=== PATIENT | male | born 1955 | race Caucasian/White ===

== ENCOUNTER 2016-09-17 11:51 | Emergency (ER) | payer BC, OTHER ==
--- NOTE | 2016-09-17 13:04 | ED ---
General Adult HPI - General Chief complaint: Shortness of Breath Stated complaint: SOB, PAIN IN RT LUNG Time Seen by Provider: 09/17/16 12:38 Source: patient, family, RN notes reviewed Mode of arrival: wheelchair Limitations: no limitations - History of Present Illness Initial comments: Chief complaint history of present illness a 60-year-old male who over the last week is been having discomfort to the right mid anterior ribs. Increases with deep breathing coughing and palpation. No direct injury but he has been doing heavy lifting in the garden. No sweats no fever. - Related Data Home Medications Medication Instructions Recorded Confirmed Acetaminophen-Codeine 300-30mg 1 tab PO Q8H PRN 09/17/16 09/17/16 [Tylenol #3] Ibuprofen [Motrin] 600 mg PO Q6HR PRN 09/17/16 09/17/16 Previous Rx's Medication Instructions Recorded Ibuprofen [Motrin] 600 mg PO Q6HR PRN #20 tab 09/17/16 Levofloxacin [Levaquin] 500 mg PO DAILY #7 tab 09/17/16 Allergies Allergy/AdvReac Type Severity Reaction Status Date / Time No Known Allergies Allergy Verified 09/17/16 12:44 Review of Systems ROS Statement: Those systems with pertinent positive or pertinent negative responses have been documented in the HPI. Review of systems no headache or visual acuity changes mild neck discomfort with flexion-extension shortness of breath associated with deep breathing causes pain with deep breathing. Splinting helps decrease the pain slightly. No nausea no vomiting. All systems reviewed No significant past medical problems. Surgeries none. Family history heart disease multilevel lung cancer. He has no ALLERGIES. He does smoke strongly encouraged to stop he drinks alcohol socially. ROS Other: All systems not noted in ROS Statement are negative. Past Medical History Past Medical History: No Reported History History of Any Multi-Drug Resistant Organisms: None Reported Past Surgical History: No Surgical Hx Reported Past Psychological History: No Psychological Hx Reported Smoking Status: Current every day smoker Past Alcohol Use History: Occasional Past Drug Use History: None Reported General Exam - General Exam Comments Initial Comments: General: The patient is awake and alert, weeklong pain with deep breathing coughing and palpation of the right anterolateral rib cage. Vital signs temp 98.3 pulse 106 respiratory rate 20 pulse ox 96% room air blood pressure 140/93 Eye: Pupils are equal, round and reactive to light, extra-ocular movements are intact ; there is normal conjunctiva bilaterally. No signs of icterus. Ears, nose, mouth and throat: There are moist mucous membranes and no oral lesions. Neck: The neck is supple, there is no tenderness , mild discomfort to both left and right trapezius muscles. The patient's been doing heavy lifting outdoors. No stiff neck no meningeal rotation, no meningismus. Cardiovascular: There is a regular rate and rhythm. No murmur, rub or gallop is appreciated. Respiratory: Lungs are clear to auscultation, respirations are non-labored, breath sounds are equal. No wheezes, stridor, rales, or rhonchi. Pain with inspiration. Gastrointestinal: Soft, non-distended, non-tender abdomen without masses or organomegaly noted. There is no rebound or guarding present. No CVA tenderness. Bowel sounds are unremarkable. Back: There is no tenderness to palpation in the midline. There is no obvious deformity. No rashes noted. Early shingles discussed. Musculoskeletal: Normal ROM, no tenderness, There is no pedal edema. There is no calf tenderness or swelling. Sensation intact. Pulses equal bilaterally 2+. Neurological: No neuro deficits Skin: Skin is warm and dry and no rashes or lesions are noted. Early shingles discussed Limitations: no limitations Course Vital Signs 09/17/16 09/17/16 12:24 13:12 Temperature 98.3 F Pulse Rate 106 H 96 Respiratory 20 16 Rate Blood Pressure 140/93 141/94 O2 Sat by Pulse 96 96 Oximetry Medical Decision Making - Medical Decision Making Chest x-ray was done and reviewed by radiologist his impression is; there is abnormal increased density present at the right lower lobe. No pneumothorax or pleural effusion is evident. There is no displaced rib fracture. Cardiac mediastinal silhouette within normal limits. Impression; correlate for right lower lobe pneumonia. Follow-up to resolution to exclude underlying mass. As read by Dr. Mccain The patient is a smoker. We did discuss the increased density in the right lower lobe. It appears to be causing pleuritic irritation. The patient will be placed on Levaquin with repeat x-ray in 10 days to make sure this resolves. Patient states he does not have a family physician so he'll be referred to on- call medicine doctor Chely. states she'll make sure he gets a repeat chest x-ray and follow-up with Dr. Mo. Disposition Clinical Impression: Right lower lobe pneumonia Disposition: HOME SELF-CARE Condition: Fair Instructions: Community Acquired Pneumonia (ED) Additional Instructions: Take antibiotics until completed. Get repeat chest x-ray and follow-up with your family physician. If he does not have a family physician follow-up with Dr. Mo, on-call medical physician to the emergency room. Possibility of lung or pleural-based tumor must be considered Prescriptions: Ibuprofen [Motrin] 600 mg PO Q6HR PRN #20 tab PRN Reason: Pain Levofloxacin [Levaquin] 500 mg PO DAILY #7 tab Referrals: None,Stated [Primary Care Provider] - 1-2 days Jayro Mo MD [STAFF PHYSICIAN] - 1-2 days Time of Disposition: 14:06
[2016-09-17 13:13] VITALS: RESP 16
--- NOTE | 2016-09-17 13:37 | XR ---
Right RIBS with PA chest x-ray HISTORY: Pain Frontal view of the chest, 5 views of the right ribs submitted and correlated to prior chest x-ray da kerry 08/20/2012 There is abnormal increased density present at the right lower lobe. No pneumothorax or pleural effus ion is evident. There is no displaced rib fracture. Cardiac mediastinal silhouette within normal limi ts. IMPRESSION: Correlate for right lower lobe pneumonia. Follow-up to resolution to exclude underlying m ass.
[2016-09-17] MEDS ORDERED: LEVOFLOXACIN 500 MG TAB PO STA (14:02)
[2016-09-17 14:35] VITALS: BP 132/85; PULSE 98; TEMP 97.6
== END 2016-09-17 14:35 | disposition home or self-care (01) ==
LOC: EC 11:51
DX: J18.9 Pneumonia, unspecified organism (principal); F17.200 Nicotine dependence, unspecified, uncomplicated
CPT/HCPCS: 99284

== ENCOUNTER 2016-10-05 12:05 | Inpatient (IN) | payer OTHER ==
[2016-10-05] MEDS ORDERED: RX INFO: IV CONTRAST WAS GIVEN 1 EACH MISC MISCELLANE PRN (12:35)
--- NOTE | 2016-10-05 12:44 | ED ---
General Adult HPI - General Chief complaint: Recheck/Abnormal Lab/Rx Stated complaint: Sent by Time Seen by Provider: 10/05/16 12:33 Source: patient Mode of arrival: ambulatory Limitations: no limitations - History of Present Illness Initial comments: Aristeo is a previously healthy 60-year-old male smoker who presents to the emergency department after an outpatient computed tomography scan revealed a possible right-sided pulmonary embolus. The patient reports that he was treated in our emergency department and of August in diagnosed with pneumonia. He reports he completed his course of antibiotics and followed up with his primary care physician as advised. His primary care physician ordered him an outpatient computed tomography scan to evaluate for a suspicious lesion that was seen on previous chest x-ray. The patient had his outpatient computed tomography scan today and returned home and received a call from his primary care physician indicating that there was some suspicious findings and he needed the emergency Department immediately. The patient reports he is feeling very anxious about these results but otherwise has been feeling well he reports he has a mild cough occasionally and attributes this to being a smoker. She reports he was having right-sided chest pain when he was diagnosed with pneumonia but that that has since resolved. He denies any shortness of breath, chest pain or palpitations prior to today. He does report he is feeling some palpitations now but attributes this to the anxiety of being told that he had an abnormality on his computed tomography scan. Patient expresses concern that he may have lung cancer given his history of being a heavy smoker. She has no personal history of blood clot, DVT or pulmonary embolism. He reports his parents some time ago but he doesn't believe they have any previous history. He denies any recent long travels or swelling in either leg. - Related Data Home Medications Medication Instructions Recorded Confirmed Lisinopril [Zestril] 5 mg PO DAILY 10/05/16 10/05/16 Allergies Allergy/AdvReac Type Severity Reaction Status Date / Time No Known Allergies Allergy Verified 10/05/16 12:24 Review of Systems ROS Statement: Those systems with pertinent positive or pertinent negative responses have been documented in the HPI. ROS Other: All systems not noted in ROS Statement are negative. Constitutional: Denies: fever, chills Respiratory: Denies: cough, dyspnea, hemoptysis (Patient reports he had a cough with scant, desist 2-3 weeks ago, this has resolved) Cardiovascular: Reports: palpitations. Denies: chest pain, orthopnea, paroxysmal nocturnal dyspnea Endocrine: Denies: fatigue Gastrointestinal: Denies: nausea, vomiting Musculoskeletal: Denies: back pain Skin: Denies: rash, lesions Neurological: Denies: headache Psychiatric: Reports: anxiety (Anxious regarding results of computed tomography scan) Hematological/Lymphatic: Denies: easy bleeding, easy bruising Past Medical History Past Medical History: Hypertension History of Any Multi-Drug Resistant Organisms: None Reported Past Surgical History: No Surgical Hx Reported Past Psychological History: No Psychological Hx Reported Smoking Status: Current every day smoker Past Alcohol Use History: Occasional Past Drug Use History: None Reported - Past Family History Father Additional Family Medical History / Comment(s): ALCOHOLIC, HEART DISEASE- IN HIS SLEEP AT AGE 52. Mother Family Medical History: Cancer, Congestive Heart Failure (CHF) Additional Family Medical History / Comment(s): LUNG CANCER General Exam Limitations: no limitations General appearance: alert, anxious Head exam: Present: atraumatic, normocephalic, normal inspection Eye exam: Present: normal appearance, PERRL, EOMI. Absent: scleral icterus, conjunctival injection, periorbital swelling ENT exam: Present: normal exam, mucous membranes moist Neck exam: Present: normal inspection. Absent: tenderness, meningismus, lymphadenopathy Respiratory exam: Present: normal lung sounds bilaterally. Absent: respiratory distress, wheezes, rales, rhonchi, stridor, chest wall tenderness, accessory muscle use, decreased breath sounds Cardiovascular Exam: Present: tachycardia, irregular rhythm GI/Abdominal exam: Present: soft. Absent: distended, tenderness Rectal exam: Present: deferred Extremities exam: Present: normal inspection, full ROM, normal capillary refill. Absent: tenderness, pedal edema, joint swelling, calf tenderness Back exam: Present: normal inspection Neurological exam: Present: alert, oriented X3, CN II-XII intact Psychiatric exam: Present: normal affect, normal mood Skin exam: Present: warm, dry, intact Course Vital Signs 10/05/16 10/05/16 10/05/16 12:12 12:57 14:08 Temperature 98.2 F 98.0 F 97.3 F L Pulse Rate 117 H 108 H 94 Respiratory 20 16 18 Rate Blood Pressure 178/101 154/79 154/101 O2 Sat by Pulse 98 96 97 Oximetry 10/05/16 10/05/16 15:03 15:20 Temperature 97.3 F L 97.3 F L Pulse Rate 94 94 Respiratory 18 18 Rate Blood Pressure 154/101 154/101 O2 Sat by Pulse 97 97 Oximetry - Reevaluation(s) Reevaluation #1: Contacted by radiology does state he had an over read of his imaging and are convinced he does have a pulmonary embolus. CT angiography is not indicated. These results were discussed with the patient. Patient is resting comfortably in bed, appropriately anxious regarding results and need for hospitalization. 10/05/16 13:14 EKG Findings - EKG Comments: EKG Findings:: EKG at 1246. Rate is 103 bpm, rhythm is irregularly irregular. There is poor baseline, appears to be atrial fibrillation or flutter. No acute ST elevations or depressions. Medical Decision Making - Medical Decision Making Received a call from patient's primary care physician outpatient imaging revealed a possible pulmonary Molz[place] Patient was seen and evaluated, vital signs were reviewed, patient was tachycardic History is obtained from patient, medical record, primary care physician Further labs and imaging were ordered to evaluate for any cardiac strain due to pulmonary embolus as well as a CT angiography of the chest for definitive diagnosis Received a call from radiology that they had an over read of their CT and a second radiologist is in agreement that this is definitively a pulmonary embolus him and a CT angiography is not required EKG was evaluated and reveals A. fib with RVR, patient has no history of this A she was reevaluated and noted to have a heart rate ranging between high 90s and 120, blood pressure is stable no hypotension High-intensity heparin has been ordered for pulmonary embolism Labs were reviewed, BNP and troponin were negative Patient care was discussed with the admitting provider who accepts admission for acute pulmonary embolism. He requests bilateral venous Dopplers and echo be ordered as well as a cardiology consult. Orders were placed. Patient was updated on plan for admission and is agreeable. - Lab Data Result diagrams: 10/06/16 06:23 10/05/16 12:32 Lab Results 10/05/16 10/05/16 10/05/16 Range/Units 12:32 12:32 12:32 WBC 7.2 (3.8-10.6) k/uL RBC 5.63 (4.30-5.90) m/uL Hgb 16.9 (13.0-17.5) gm/dL Hct 49.5 (39.0-53.0) % MCV 87.9 (80.0-100.0) fL MCH 30.0 (25.0-35.0) pg MCHC 34.1 (31.0-37.0) g/dL RDW 12.9 (11.5-15.5) % Plt Count 270 (150-450) k/uL Neutrophils % 56 % Lymphocytes % 33 % Monocytes % 5 % Eosinophils % 3 % Basophils % 1 % Neutrophils # 4.0 (1.3-7.7) k/uL Lymphocytes # 2.4 (1.0-4.8) k/uL Monocytes # 0.3 (0-1.0) k/uL Eosinophils # 0.2 (0-0.7) k/uL Basophils # 0.1 (0-0.2) k/uL PT (9.0-12.0) sec INR (<1.1) APTT (22.0-30.0) sec D-Dimer (<0.60) mg/L FEU Sodium 141 (137-145) mmol/L Potassium 4.8 (3.5-5.1) mmol/L Chloride 109 H (98-107) mmol/L Carbon Dioxide 22 (22-30) mmol/L Anion Gap 10 mmol/L BUN 15 (9-20) mg/dL Creatinine 0.90 (0.66-1.25) mg/dL Est GFR (MDRD) Af Amer >60 (>60 ml/min/1.73 sqM) Est GFR (MDRD) Non-Af >60 (>60 ml/min/1.73 sqM) Glucose 92 (74-99) mg/dL Calcium 9.7 (8.4-10.2) mg/dL Troponin I (0.000-0.034) ng/mL NT-Pro-B Natriuret Pep 127 pg/mL 10/05/16 10/05/16 Range/Units 12:32 12:32 WBC (3.8-10.6) k/uL RBC (4.30-5.90) m/uL Hgb (13.0-17.5) gm/dL Hct (39.0-53.0) % MCV (80.0-100.0) fL MCH (25.0-35.0) pg MCHC (31.0-37.0) g/dL RDW (11.5-15.5) % Plt Count (150-450) k/uL Neutrophils % % Lymphocytes % % Monocytes % % Eosinophils % % Basophils % % Neutrophils # (1.3-7.7) k/uL Lymphocytes # (1.0-4.8) k/uL Monocytes # (0-1.0) k/uL Eosinophils # (0-0.7) k/uL Basophils # (0-0.2) k/uL PT 10.9 (9.0-12.0) sec INR 1.1 (<1.1) APTT 23.6 (22.0-30.0) sec D-Dimer 1.10 H (<0.60) mg/L FEU Sodium (137-145) mmol/L Potassium (3.5-5.1) mmol/L Chloride (98-107) mmol/L Carbon Dioxide (22-30) mmol/L Anion Gap mmol/L BUN (9-20) mg/dL Creatinine (0.66-1.25) mg/dL Est GFR (MDRD) Af Amer (>60 ml/min/1.73 sqM) Est GFR (MDRD) Non-Af (>60 ml/min/1.73 sqM) Glucose (74-99) mg/dL Calcium (8.4-10.2) mg/dL Troponin I <0.012 (0.000-0.034) ng/mL NT-Pro-B Natriuret Pep pg/mL Disposition Clinical Impression: Pulmonary embolism Disposition: ADMITTED IP TO THIS HOSP Condition: Good
[2016-10-05 12:51] LABS: Basophils # (A) 0.1 k/uL (0-0.2); Basophils % (A) 1 %; CH 30.2; CHCM 34.5; Eosinophils # (A) 0.2 k/uL (0-0.7); Eosinophils % (A) 3 %; HCT 49.5 % (39.0-53.0); HDW 2.97; HGB 16.9 gm/dL (13.0-17.5); Luc # (Auto) 0.15; Luc % (Auto) 2; Lymphocytes # (A) 2.4 k/uL (1.0-4.8); Lymphocytes % (A) 33 %; MCHC 34.1 g/dL (31.0-37.0); MCV 87.9 fL (80.0-100.0); Mean Platelet Volume 8.1; Monocytes # (A) 0.3 k/uL (0-1.0); Monocytes % (A) 5 %; Neutrophils % (A) 56 %; RBC 5.63 m/uL (4.30-5.90); RDW 12.9 % (11.5-15.5); WBC 7.2 k/uL (3.8-10.6); WBC (Perox) 6.87
[2016-10-05] MEDS ORDERED: HEPARIN SODIUM,PORCINE 5,000 UNIT/ML 1 ML VIAL IV PRN (12:51)
[2016-10-05] MEDS ORDERED: HEPARIN SODIUM,PORCINE 10,000 UNIT/ML 1 ML VIAL IV ONE (12:51)
[2016-10-05 13:03] LABS: Anion Gap 10 mmol/L; Blood Urea Nitrogen 15 mg/dL (9-20); Calcium 9.7 mg/dL (8.4-10.2); Carbon Dioxide 22 mmol/L (22-30); Chloride 109 mmol/L (98-107); Glucose 92 mg/dL (74-99); Non-African American GFR(MDRD) >60 (>60 ml/min/1.73 sqM); Potassium 4.8 mmol/L (3.5-5.1); Sodium 141 mmol/L (137-145)
[2016-10-05 13:04] LABS: INR 1.1 (<1.1); Partial Thromboplastin Time 23.6 sec (22.0-30.0); Prothrombin Time 10.9 sec (9.0-12.0)
[2016-10-05] MEDS: HEPARIN SODIUM,PORCINE/D5W PMX 25,000 UNIT in DEXTROSE/WATER 1 500ML.BAG IV SCH (13:51)
[2016-10-05 14:14] VITALS: RESP 18
[2016-10-05] MEDS ORDERED: NALOXONE 0.4 MG/ML 1 ML VIAL IV PRN (14:31)
--- NOTE | 2016-10-05 17:18 | US ---
EXAMINATION TYPE: US venous doppler duplex LE DATE OF EXAM: 10/05/2016 5:01 PM COMPARISON: NONE CLINICAL HISTORY: pulmonary embolism. PERFORMED: Bilateral lower extremities. TECHNIQUE: The lower extremity deep venous system is examined utilizing real time linear array sonog omaira with graded compression, doppler sonography and color-flow sonography. VESSELS IMAGED: External Iliac Vein (EIV) Common Femoral Vein Deep Femoral Vein Greater Saphenous Vein * Femoral Vein Popliteal Vein Small Saphenous Vein * Proximal Calf Veins (* superficial vessels) Grayscale, color doppler, spectral doppler imaging performed of the deep veins of the lower extremiti es. Thrombus was visualized in the right deep femoral vein. IMPRESSION: 1. RIGHT LEG: POSITIVE FOR DVT IN THE RIGHT DEEP FEMORAL VEIN. 2. LEFT LEG: NEGATIVE FOR DVT .
[2016-10-05] MEDS: SODIUM CHLORIDE 0.9% 1,000 ML IV SCH (18:42)
[2016-10-06 06:48] LABS: Basophils # (A) 0.1 k/uL (0-0.2); Basophils % (A) 1 %; CHCM 33.9; Eosinophils # (A) 0.2 k/uL (0-0.7); Eosinophils % (A) 3 %; HCT 47.7 % (39.0-53.0); HDW 2.93; HGB 16.3 gm/dL (13.0-17.5); Luc # (Auto) 0.16; Luc % (Auto) 2; Lymphocytes # (A) 2.9 k/uL (1.0-4.8); Lymphocytes % (A) 40 %; MCH 30.5 pg (25.0-35.0); MCHC 34.3 g/dL (31.0-37.0); MCV 88.9 fL (80.0-100.0); Mean Platelet Volume 8.2; Monocytes # (A) 0.4 k/uL (0-1.0); Monocytes % (A) 5 %; Neutrophils # (A) 3.6 k/uL (1.3-7.7); Neutrophils % (A) 49 %; RBC 5.36 m/uL (4.30-5.90); RDW 12.9 % (11.5-15.5); WBC 7.2 k/uL (3.8-10.6); WBC (Perox) 6.68
[2016-10-06] MEDS: HEPARIN SODIUM,PORCINE/D5W PMX 25,000 UNIT in DEXTROSE/WATER 1 500ML.BAG IV SCH ×2 (06:55→23:08)
[2016-10-06] MEDS: LISINOPRIL 5 MG TAB PO SCH (08:27)
--- NOTE | 2016-10-06 10:38 | ECHOF ---
Referral Reason:pulmonary embolism MEASUREMENTS -------- HEIGHT: 170.2 cm WEIGHT: 80.7 kg BP: 148/99 RVIDd: 2.3 cm (< 3.3) IVSd: 1.2 cm (0.6 - 1.1) LVIDd: 4.1 cm (3.9 - 5.3) LVPWd: 1.0 cm (0.6 - 1.1) IVSs: 1.3 cm LVIDs: 3.3 cm LVPWs: 1.2 cm LA Diam: 3.7 cm (2.7 - 3.8) LAESV Index (A-L): 43.70 ml/m Ao Diam: 3.0 cm (2.0 - 3.7) AV Cusp: 2.1 cm (1.5 - 2.6) LA Diam: 4.8 cm (2.7 - 3.8) MV EXCURSION: 21.800 mm (> 18.000) MV EF SLOPE: 162 mm/s (70 - 150) EPSS: 0.4 cm RAP: 5.00 mmHg RVSP: 12.02 mmHg FINDINGS -------- Atrial fibrillation. This was a technically good study. The left ventricular size is normal. There is mild concentric left ventricular hypertrophy. Overall left ventricular systolic function is normal with, an EF between 55 - 60 %. The right ventricle is normal in size. LA is severely dilated >40 ml/m2 The right atrial size is normal. There is mild aortic valve sclerosis. There is no evidence of aortic regurgitation. The mitral valve leaflets are mildly thickened. Mild mitral regurgitation is present. Mild tricuspid regurgitation present. There is no evidence of pulmonary hypertension. The right ventricular systolic pressure, as measured by Doppler, is 12.02mmHg. Trace/mild (physiologic) pulmonic regurgitation. The aortic root size is normal. There is no pericardial effusion. CONCLUSIONS -------- 1. This was a technically good study. 2. The aortic root size is normal. 3. There is no pericardial effusion. 4. There is mild concentric left ventricular hypertrophy. 5. Overall left ventricular systolic function is normal with, an EF between 55 - 60 %. 6. LA is severely dilated >40 ml/m2 7. There is mild aortic valve sclerosis. 8. Mild mitral regurgitation is present. 9. Mild tricuspid regurgitation present. 10. There is no evidence of pulmonary hypertension. 11. Trace/mild (physiologic) pulmonic regurgitation. [employer] MACHINE TENDER: Maria Elena Yanez RDCS
[2016-10-06] MEDS: SODIUM CHLORIDE 0.9% 1,000 ML IV SCH (11:45)
[2016-10-06] MEDS: METOPROLOL TARTRATE 25 MG TAB PO SCH ×2 (12:43→21:19)
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
[2016-10-07 07:22] LABS: Basophils # (A) 0.1 k/uL (0-0.2); Basophils % (A) 1 %; CH 29.9; CHCM 33.3; Eosinophils # (A) 0.3 k/uL (0-0.7); Eosinophils % (A) 3 %; HDW 2.91; HGB 16.4 gm/dL (13.0-17.5); Luc # (Auto) 0.18; Luc % (Auto) 2; Lymphocytes # (A) 3.5 k/uL (1.0-4.8); Lymphocytes % (A) 41 %; MCH 29.5 pg (25.0-35.0); MCHC 32.8 g/dL (31.0-37.0); MCV 90.1 fL (80.0-100.0); Mean Platelet Volume 8.7; Monocytes # (A) 0.4 k/uL (0-1.0); Monocytes % (A) 5 %; Neutrophils % (A) 47 %; RBC 5.55 m/uL (4.30-5.90); RDW 13.1 % (11.5-15.5); WBC 8.4 k/uL (3.8-10.6); WBC (Perox) 7.68
[2016-10-07] MEDS: LISINOPRIL 5 MG TAB PO SCH (08:50)
[2016-10-07] MEDS: SODIUM CHLORIDE 0.9% 1,000 ML IV SCH (08:50)
[2016-10-07] MEDS: METOPROLOL TARTRATE 25 MG TAB PO SCH (08:50)
[2016-10-07 08:54] VITALS: TEMP 97.4
[2016-10-07 11:33] LABS: Anion Gap 9 mmol/L; Blood Urea Nitrogen 13 mg/dL (9-20); Calcium 9.4 mg/dL (8.4-10.2); Carbon Dioxide 27 mmol/L (22-30); Chloride 107 mmol/L (98-107); Glucose 94 mg/dL (74-99); Non-African American GFR(MDRD) >60 (>60 ml/min/1.73 sqM); Sodium 143 mmol/L (137-145)
[2016-10-07] MEDS ORDERED: RIVAROXABAN 15 MG TAB PO SCH (12:30)
--- NOTE | 2016-10-07 13:42 | P.DS ---
Providers Date of admission: 10/05/16 14:41 Expected date of discharge: 10/07/16 Attending physician: Arnulfo Tavera Consults: 10/05/16 14:33 Consult Physician Routine Consulting Provider: Chiqui Bazan Consult Reason/Comments: new afib in setting of PE Do you want consulting provider notified?: Yes Primary care physician: [facility] Course: This is a pleasant 60-year-old white male who was seen in the office by my partner Dr. Guido. He is fairly new to the practice and recently developed pneumonia. He was seen in emergency room approximately 3 weeks ago for it. The x-ray there is slightly abnormal and it was recommended that he follow-up with his primary care. When he did, not currently ordered a CT of the chest. On this exam there was a significant suggestion of pulmonary embolism. The office notified the patient sent immediately emergency room. There was found that he was in atrial fibrillation, and radiology times to review the CT chest, recommended against a second, and confirmed pulmonary embolism. He did have an elevated d-dimer in the ER as well. He is now resting comfortably on the floor. Cardiology consultation is pending. He is heparinized. We discussed Coumadin and novel anticoagulants as treatment. He has no complaints today. He denies any chest pains, pressures, shortness of breath, nausea, vomiting, diarrhea, fever, chills, or other significant abnormality. Overnight the patient had no problems or issues. Cardiology had cleared him after 24 hours. He was given one dose Xarelto and 1 hour later his heparin drip was discontinued. He was then discharged home Final diagnosis Acute pulmonary embolism New onset atrial fibrillation Hypertension History of ulcers: Left atrial dilatation Tobaccoism Patient Condition at Discharge: Fair Plan - Discharge Summary New Discharge Prescriptions: New Metoprolol Tartrate [Lopressor] 25 mg PO Q12HR #180 tab Rivaroxaban [Xarelto] 15 mg PO BID-W/MEALS #42 tab Continue Lisinopril [Zestril] 5 mg PO DAILY Discharge Medication List Lisinopril [Zestril] 5 mg PO DAILY 10/05/16 [History] Metoprolol Tartrate [Lopressor] 25 mg PO Q12HR #180 tab 10/07/16 [Rx] Rivaroxaban [Xarelto] 15 mg PO BID-W/MEALS #42 tab 10/07/16 [Rx] Follow up Appointment(s)/Referral(s): Chiqui Bazan MD [STAFF PHYSICIAN] - 1 Week Shad Guido Jr, DO [Primary Care Provider] - 1-2 days Patient Instructions/Handouts: Safe Use of Anticoagulants (GEN) Discharge Disposition: HOME SELF-CARE
[2016-10-07 13:47] VITALS: BP 144/87; PULSE 85
--- NOTE | 2016-10-07 13:50 | PN ---
Mr. Rivera is a gentleman with a pulmonary embolism, DVT and atrial fibrillation. Rate control is optimal. I am increasing his Lopressor to 25 mg t.i.d. For his pulmonary embolism, we are going to given him Xarelto 15 mg b.i.d. provided insurance agrees or he has a coupon. He will take this for 3 weeks, followed by 20 mg daily. These instructions are given to the patient and family. He is doing well today. Vital signs are stable. S1, S2 heard normal, irregular rhythm noted. Rate control is fair. No significant murmurs. Lungs are clear. Abdomen and lower extremity exam unchanged. Patient can be discharged on Xarelto as instructed and I will see him in the office in 7 to 10 days. JOSEPHD
[2016-10-07] MEDS ORDERED: METOPROLOL TARTRATE 25 MG TAB PO SCH (16:00)
== END 2016-10-07 15:10 | disposition home or self-care (01) | DRG 308 ==
LOC: EC 12:05 → 6SEL 14:41
PROVIDERS: ADMIT Family Medicine; ATTEND Family Medicine
DX: I48.91 Unspecified atrial fibrillation (principal); I26.99 Other pulmonary embolism without acute cor pulmonale; I82.411 Acute embolism and thrombosis of right femoral vein; I11.9 Hypertensive heart disease without heart failure; F41.9 Anxiety disorder, unspecified; F17.200 Nicotine dependence, unspecified, uncomplicated; I51.7 Cardiomegaly; K21.9 Gastro-esophageal reflux disease without esophagitis; Z79.899 Other long term (current) drug therapy; Z80.1 Family history of malignant neoplasm of trachea, bronchus and lung; Z82.49 Family history of ischemic heart disease and other diseases of the circulatory system
CPT/HCPCS: 36415; 80048; 83880; 84484; 85025; 85379; 85610; 85730; 93005; 93306; 93970

== ENCOUNTER → 2016-10-05 | Outpatient (CLI) | payer OTHER ==
--- NOTE | 2016-10-05 09:17 | CT ---
EXAMINATION TYPE: CT chest w con DATE OF EXAM: 10/05/2016 COMPARISON: Radiograph 09/17/2016 HISTORY: 60-year-old male Abnormal CXR, cough TECHNIQUE: Contiguous axial scanning of the chest after the administration of 100 mL of Omnipaque 300 . Coronal/sagittal reconstructions performed. CT DLP: 585mGycm. Automatic exposure control utilized for a dose reduction. FINDINGS: The heart is normal size with trace anterior basilar pericardial fluid. Coronary vessel calcification s are present in remarkable for coronary artery disease. Ascending aorta is ectatic at 3.7 cm. Mild atherosclerotic arch calcifications and conventional arch vessel branching anatomy. While this study is not optimized for assessment of pulmonary emboli, there is a apparent central pippa ling defect within the right lower lobe posterior segmental and subsegmental arterial branch, for exa mple, axial image 38 and sagittal image 40. Mildly enlarged right tracheobronchial angle lymph node measures 1.1 cm. Some prominent right hilar l ymph nodes are also noted measuring 8 mm. Mild centrilobular emphysema. Mild biapical pleural-parenchymal scarring. There is an irregular subpl eural masslike area of consolidation measuring 4.4 x 2.3 cm and the smaller subpleural nodule just be low in the peripheral right lower lobe measuring 1.7 cm. No other consolidation or pleural effusion. Visualized upper abdomen shows a small dependent gallstone. There is a 1 cm low-density nodule within the right adrenal gland, statistically representing a benign adrenal adenoma. Calcified granuloma po sterior liver. Bones: No osseous destructive process. IMPRESSION: 1. While this study is not optimized for assessment of pulmonary emboli, findings are suspicious for a segmental and subsegmental right lower lobe pulmonary embolus. Consider confirmation with a CT PE s tudy. 2. Subpleural masslike area of consolidation measuring 4.4 cm in the right lower lobe and adjacent 1. 7 cm subpleural nodular density. In the setting of the above suspected PE, a pulmonary infarct is in the differential. Correlate for any infectious signs/symptoms to exclude pneumonia. Recommend six-wee k follow-up to assess for any evolutional changes. If there is persistence or enlargement, neoplasm w ould then need to be considered. Alternatively, PET/CT can be considered. 3. COPD with mild emphysema. Mildly enlarged right tracheobronchial angle lymph node of 1.1 cm may be reactive. 4. A 1 cm right adrenal gland nodule statistically represents a benign adrenal adenoma. This should a lso be reassessed on the patient's follow-up exams. 5. Cholelithiasis. Critical results called to Dr. Guido at 9:10 am.
== END | disposition home or self-care (01) ==
LOC: RADCTMAIN 07:22
PROVIDERS: ATTEND Family Medicine
DX: R91.8 Other nonspecific abnormal finding of lung field (principal); J44.9 Chronic obstructive pulmonary disease, unspecified
CPT/HCPCS: 71260; Q9967

== ENCOUNTER → 2016-11-18 | Outpatient (CLI) | payer OTHER ==
--- NOTE | 2016-11-18 18:53 | PE ---
EXAMINATION TYPE: PET CT fusion skull to thigh DATE OF EXAM: 11/18/2016 COMPARISON: CT chest 10/05/2016 Prior PET/CT: None HISTORY: Right lung cancer TECHNIQUE: Following the intravenous administration of 12.67 mCi of F-18 FDG, whole body images are performed from the skull base to the midthigh. Images are reviewed on the computer in the coronal, a xial, and sagittal planes. Reconstructed rotating images are created on independent workstation and reviewed on the computer. A localization and attenuation correction CT is performed in conjunction with the PET scan. DLP: 446.61 mGycm SCAN: Initial Blood glucose: 95 mg/dL Average Mediastinum SUV: 1.6 Average Liver SUV: 2.5 FINDINGS: NECK: Some acromioclavicular joint inflammatory changes likely present on the left. Suspicious uptak e is not identified. THORAX: The density within the periphery of the right midlung has an SUV value 1.6. This could be inf lammatory in nature. Low metabolic activity could be considered. Follow-up is recommended. Suspicious neoplasm is not identified. The right paratracheal lymph node has an SUV value 1.6. ABDOMEN: No abnormal uptake PELVIS: There is a focal radiotracer accumulation in the left inguinal region with an SUV value 2.7 c m suspicious for metastatic lesion. There may be a second lymph node inferior medial within the left inguinal region measuring 2.2 SUV value suspicious for metastatic lesion. OSSEOUS STRUCTURES: No abnormal uptake LOCALIZATION CT: The area in question within the right peripheral lung is diminished in size from the comparison study. There is an enlarged lymph node at 1.5 cm in the pretracheal space which remains p resent. Smaller aortopulmonic window lymph node is also noted. Ascending thoracic aorta at the level the pulmonary artery is 4.0 cm. Main pulmonary bifurcation is 2.4 cm. Coronary artery calcification is present. COMPARISON: Area of abnormality on the September CT the periphery of the right mid to lower lung field has diminished in size over the interval. IMPRESSION: 1. Findings within the right midlung appear to be resolving and have an SUV value in the range of inf lammatory change. Monitoring with CT is recommended. 2. There are couple of punctate hyperintensities within the left inguinal region. This area should be monitored inflammatory change or metastatic disease at this level should be considered.
== END | disposition home or self-care (01) ==
LOC: RADPETMAIN 08:25
PROVIDERS: ATTEND Family Medicine
DX: R91.8 Other nonspecific abnormal finding of lung field (principal)
CPT/HCPCS: 78815; A9552

== ENCOUNTER 2016-11-29 06:54 | Day surgery (SDC) | payer OTHER ==
[2016-11-21 12:51] VITALS: BMI 27.8
[~2016-11-29 06:54] MED LIST: LACTATED RINGERS 1,000 ML IV SCH; SODIUM CHLORIDE 0.9% 1,000 ML IV SCH
[2016-11-29 07:27] VITALS: TEMP 98.5
[2016-11-29] MEDS ORDERED: fentaNYL (PF) 50 MCG/ML 2 ML AMP ONE (08:09)
[2016-11-29] MEDS ORDERED: SODIUM CHLORIDE 0.9% 500 ML IV ONE (08:09)
[2016-11-29] MEDS ORDERED: LIDOCAINE 1% INJ 10MG/ML (20 ML MDV) ONE (08:09)
[2016-11-29] MEDS ORDERED: PROPOFOL 10 MG/ML 20 ML VIAL IV ONE (08:09)
[2016-11-29] MEDS ORDERED: SODIUM CHLORIDE 0.9% 1,000 ML IV SCH (08:30)
[2016-11-29 11:42] VITALS: PULSE 60
[2016-11-29 11:56] VITALS: BP 119/90; RESP 20
--- NOTE | 2016-11-30 08:08 | CE ---
CARDIAC ELECTROPHYSIOLOGY REPORT PROCEDURE: Electrical cardioversion. INDICATIONS: Persistent atrial fibrillation. PERFORMED BY: Dr. Aram Bazan DATE OF SERVICE: 11/29/2016 Mr. Rivera is a 60-year-old gentleman with a history of recent onset persistent atrial fibrillation and pulmonary embolism who was adequately anticoagulated on Xarelto 20 mg daily. His rate control was fairly decent with metoprolol tartrate 50 mg b.i.d. He was brought in for electrical cardioversion after due discussion of risks, benefits, and options. PROCEDURE NOTE: Under the influence of ultra short-acting intravenous anesthetic agent with the attendance of the anesthesiologist, a single 200 joule shock was delivered with anterior and posterior patches. Patient converted to sinus rhythm after a long pause. He remained hemodynamically stable and neurologically intact. This was a successful electrical cardioversion. The patient then had an EKG performed. He will be discharged with reduced dose of metoprolol at 25 mg b.i.d. and Xarelto will be continued. I will see him in the office next week on the 07 of December. Results were discussed with the patient and family and I expect that he will be discharged in about 3 to 4 hours. MMODL / IJN: [id number] /
== END 2016-11-29 11:54 | disposition home or self-care (01) ==
LOC: CATHCVL 06:54
PROVIDERS: ATTEND Internal Medicine Interventional Cardiology
DX: I48.1 Persistent atrial fibrillation (principal); Z86.711 Personal history of pulmonary embolism; Z86.718 Personal history of other venous thrombosis and embolism; Z79.01 Long term (current) use of anticoagulants; F17.210 Nicotine dependence, cigarettes, uncomplicated; I10 Essential (primary) hypertension; Z79.899 Other long term (current) drug therapy
CPT/HCPCS: 93005; 92960; J2001; J3010; J2704

== ENCOUNTER 2016-12-22 06:25 | Day surgery (SDC) | payer BC, OTHER ==
[2016-12-18 15:08] VITALS: BMI 28.0
[2016-12-22] MEDS ORDERED: SODIUM CHLORIDE 0.9% 1,000 ML IV SCH ×3 (06:31→08:00)
[2016-12-22 06:59] VITALS: TEMP 97.7
[2016-12-22] MEDS ORDERED: LIDOCAINE 1% INJ 10MG/ML (20 ML MDV) ONE (07:30)
[2016-12-22] MEDS ORDERED: PROPOFOL 10 MG/ML 20 ML VIAL IV ONE (07:30)
--- NOTE | 2016-12-22 09:05 | CE ---
CARDIAC ELECTROPHYSIOLOGY REPORT DATE OF SERVICE: 12/22/2016 PROCEDURE: Electrical cardioversion. PERFORMED BY: Dr. Aram Bazan. CLINICAL INFORMATION: Mr. Aristeo Rivera is a 61-year-old gentleman with a history of pulmonary embolism, new onset atrial fibrillation that has been persistent. Previous cardioversion was successful, but he went back into atrial fib, so he was brought back for the procedure with treatment on Rythmol 150 mg t.i.d. The patient and understood the rationale, risks, benefits, options and they are agreeable for a second cardioversion on Rythmol. PROCEDURE: Under the influence of ultra short-acting intravenous anesthetic agent with the attendance of the anesthesiologist, a single 200 joule shock was delivered with anterior and posterior patches. Patient converted to sinus rhythm with a long pause. He remained in sinus rhythm, hemodynamically stable and neurologically intact. This was a successful electrical cardioversion. He will be discharged later on today after he is ambulatory and has had a meal and I will see him in the office next Sunday. The results were discussed with the patient and family. MMODL / IJN: [id number] /
[2016-12-22 09:57] VITALS: RESP 16
[2016-12-22 11:56] VITALS: BP 120/68; PULSE 69
== END 2016-12-22 11:56 | disposition home or self-care (01) ==
LOC: CATHCVL 06:25
PROVIDERS: ATTEND Internal Medicine Interventional Cardiology
DX: I48.1 Persistent atrial fibrillation (principal); I10 Essential (primary) hypertension; F17.210 Nicotine dependence, cigarettes, uncomplicated; Z86.711 Personal history of pulmonary embolism; Z79.01 Long term (current) use of anticoagulants; Z79.899 Other long term (current) drug therapy; Z86.718 Personal history of other venous thrombosis and embolism
CPT/HCPCS: 93005; 92960; 84132; J2001; J2704

== ENCOUNTER → 2017-01-12 | Outpatient (CLI) | payer BC, OTHER ==
[2017-01-12 10:45] LABS: Anion Gap 9 mmol/L; Blood Urea Nitrogen 16 mg/dL (9-20); Calcium 9.4 mg/dL (8.4-10.2); Carbon Dioxide 25 mmol/L (22-30); Chloride 108 mmol/L (98-107); Glucose 101 mg/dL (74-99); Non-African American GFR(MDRD) >60 (>60 ml/min/1.73 sqM); Potassium 4.8 mmol/L (3.5-5.1); Sodium 142 mmol/L (137-145)
== END | disposition home or self-care (01) ==
LOC: LABWHC1 09:52
PROVIDERS: ATTEND Internal Medicine Interventional Cardiology
DX: I10 Essential (primary) hypertension (principal)
CPT/HCPCS: 36415; 80048

== ENCOUNTER 2017-02-09 06:25 | Day surgery (SDC) | payer BC, OTHER ==
[2017-02-07 10:25] VITALS: BMI 28.0
[2017-02-09] MEDS ORDERED: SODIUM CHLORIDE 0.9% 1,000 ML IV SCH (06:26)
[2017-02-09] MEDS ORDERED: LACTATED RINGERS 1,000 ML IV SCH (06:26)
[2017-02-09 06:41] VITALS: TEMP 98.2
[2017-02-09] MEDS ORDERED: PROPOFOL 10 MG/ML 20 ML VIAL IV ONE (07:35)
--- NOTE | 2017-02-09 08:20 | CE ---
CARDIAC ELECTROPHYSIOLOGY REPORT DATE OF SERVICE: 02/09/2017 PROCEDURE: Electrical cardioversion. INDICATION: Persistent atrial fibrillation. CLINICAL INFORMATION: Mr. Rivera is a 61-year-old gentleman with a history of pulmonary embolism and also new onset atrial fibrillation that has been persistent and I have previously tried 2 cardioversions without much success. The patient went back into atrial fib. I did request Dr. Pina to see the patient. He felt that we should not do any ablation for at least 6 months and therefore I am bringing him back this time with flecainide 100 mg b.i.d. on board. Risks, benefits, options, rationale explained. PROCEDURE: Under the influence of ultra short-acting intravenous anesthetic agent with the attendance of the anesthesiologist, initially a single 200 joule shock was delivered with anterior and posterior patches. Patient converted to sinus rhythm but immediately went back into atrial fib. A repeat shock of 250 joules was delivered and patient converted to sinus rhythm. Remained hemodynamically stable and neurologically intact. This was a successful cardioversion on the second shock. I will continue the same medications, which include Xarelto, Lopressor, flecainide, and losartan. Patient will be discharged when he is awaken and ambulatory and has had a meal. Results were discussed with the patient and his . A copy of this note will go to his PCP Dr. Tavera. MMHUGOL / IJN: [id number] /
[2017-02-09 12:07] VITALS: BP 138/88; PULSE 75; RESP 18
== END 2017-02-09 12:05 | disposition home or self-care (01) ==
LOC: CATHCVL 06:25
PROVIDERS: ATTEND Internal Medicine Interventional Cardiology
DX: I48.1 Persistent atrial fibrillation (principal); I44.0 Atrioventricular block, first degree; Z86.718 Personal history of other venous thrombosis and embolism; Z86.711 Personal history of pulmonary embolism; I10 Essential (primary) hypertension; Z79.01 Long term (current) use of anticoagulants; Z79.899 Other long term (current) drug therapy; Z87.891 Personal history of nicotine dependence
CPT/HCPCS: 92960; J2704

== ENCOUNTER → 2017-04-04 | Outpatient (CLI) | payer BC ==
[2017-04-04 14:00] LABS: Basophils # (A) 0.1 k/uL (0-0.2); Basophils % (A) 1 %; Eosinophils # (A) 0.2 k/uL (0-0.7); Eosinophils % (A) 3 %; HCT 52.4 % (39.0-53.0); HGB 17.1 gm/dL (13.0-17.5); Lymphocytes # (A) 2.5 k/uL (1.0-4.8); Lymphocytes % (A) 31 %; MCH 29.7 pg (25.0-35.0); MCHC 32.6 g/dL (31.0-37.0); MCV 91.1 fL (80.0-100.0); Mean Platelet Volume 9.1; Monocytes # (A) 0.5 k/uL (0-1.0); Monocytes % (A) 6 %; Neutrophils # (A) 4.6 k/uL (1.3-7.7); Neutrophils % (A) 58 %; Platelet Count 197 k/uL (150-450); RBC 5.75 m/uL (4.30-5.90); RDW 14.8 % (11.5-15.5)
[2017-04-04 14:10] LABS: ALT 46 U/L (21-72); AST 23 U/L (17-59); Albumin 3.9 g/dL (3.5-5.0); Alkaline Phosphatase 96 U/L (38-126); Anion Gap 9 mmol/L; Blood Urea Nitrogen 17 mg/dL (9-20); Calcium 9.9 mg/dL (8.4-10.2); Carbon Dioxide 27 mmol/L (22-30); Chloride 108 mmol/L (98-107); Glucose 98 mg/dL (74-99); Potassium 5.3 mmol/L (3.5-5.1); Sodium 144 mmol/L (137-145); Total Bilirubin 0.5 mg/dL (0.2-1.3); Total Protein 6.8 g/dL (6.3-8.2)
== END | disposition home or self-care (01) ==
LOC: LABWHC1 13:30
PROVIDERS: ATTEND Family Medicine
DX: R06.02 Shortness of breath (principal); I48.1 Persistent atrial fibrillation; Z79.01 Long term (current) use of anticoagulants; Z23 Encounter for immunization
CPT/HCPCS: 36415; 80053; 83880; 84443; 85025

== ENCOUNTER → 2017-05-07 | Outpatient (CLI) | payer BC ==
--- NOTE | 2017-05-07 16:00 | XR ---
EXAMINATION TYPE: XR lumbar spine 2 or 3V DATE OF EXAM: 05/07/2017 COMPARISON: NONE HISTORY: 61-year-old male with low back pain worse on the right side TECHNIQUE: 3 views FINDINGS: Moderate to severe disc/endplate degenerative change at L5-S1 with a vacuum phenomenon and endplate s pondylosis. Facet arthropathy lower lumbar spine. Vertebral body heights are preserved and alignment is maintained. IMPRESSION: Moderate to severe degenerative disc disease L5-S1. Additional facet arthropathy lower lumbar spine.
== END | disposition home or self-care (01) ==
LOC: RADXRMAIN 12:00
PROVIDERS: ATTEND Family Medicine
DX: M51.37 Other intervertebral disc degeneration, lumbosacral region (principal); M46.86 Other specified inflammatory spondylopathies, lumbar region
CPT/HCPCS: 72100

== ENCOUNTER → 2017-05-08 | Outpatient (CLI) | payer BC ==
--- NOTE | 2017-05-08 18:35 | CT ---
EXAMINATION TYPE: CT chest w con DATE OF EXAM: 05/08/2017 COMPARISON: 10/05/2016 HISTORY: Single pulmonary nodule. History of PE. Shortness of breath. CT DLP: 427.10 mGycm Automated exposure control for dose reduction was used. CONTRAST: CT scan of the chest is performed with IV Contrast, patient injected with 100 mL of Omnipaque 300. FINDINGS: There is minimal emphysematous change at the lung apices. There is is some pleural oval-shaped low-de nsity area that measures 16 x 10 mm on the right lateral chest wall. This is likely some loculated pl eural fluid. There is some mild linear density in the right midlung. There is no evidence of a pulmon octavia mass. There is no pleural effusion. Heart size is normal. There is no mediastinal adenopathy. The re are a few mediastinal and bronchial lymph nodes that measure up to 1 cm. There is no pericardial e ffusion. Thoracic aorta is intact with no evidence of aneurysm or dissection. There is good contrast density in the pulmonary arteries and I see no filling defects. The bony thorax is intact. IMPRESSION: Small oval-shaped fluid collection on the right lateral chest wall consistent with locul ated pleural fluid that is smaller than old CT scan of 10/05/2016 and consistent with inflammatory dis ease. This measures more than 2.5 cm on the old exam. There is clearing of right lower lobe pulmonary embolism compared to old exam. Nonspecific small medi astinal and bronchial lymph nodes. These appear stable.
== END | disposition home or self-care (01) ==
LOC: RADCTMAIN 17:32
PROVIDERS: ATTEND Family Medicine
DX: J81.1 Chronic pulmonary edema (principal); I26.99 Other pulmonary embolism without acute cor pulmonale; J43.8 Other emphysema
CPT/HCPCS: 71260; Q9967

== ENCOUNTER → 2017-07-12 | Outpatient (CLI) | payer BC ==
--- NOTE | 2017-07-12 18:37 | PN ---
PROGRESS NOTE DATE OF SERVICE: 07/12/2017 This patient is a 61-year-old gentleman who has been followed in the sleep center for treatment of severe obstructive sleep apnea-hypopnea syndrome. Recently patient had a polysomnogram and CPAP titration, and I discussed results of the sleep studies with the patient and family in detail. The patient was started on treatment with CPAP and this is his first visit after he was started on the treatment. I checked his CPAP unit. CPAP pressure is 14 cm of water. Usage is 25/30 nights for more than 4 hours. Average usage is 5.1 hours. Apnea-hypopnea index is only 1.5, which is perfect. Leak, though, is high at 54 L/minute. Sometimes patient then with a full-face mask which he has. Leak could go to the area of the eyes. [place] Sleepiness Scale today is still high at 16. MEDICATIONS: 1. Metoprolol. 2. Losartan. 3. Flecainide. 4. Xarelto. PHYSICAL EXAMINATION: GENERAL A pleasant gentleman without distress. VITAL SIGNS: BP on right arm 139/91, on left arm 127/86, HR 78, RR 16, weight 199, temperature 97.1. Oxygen saturation at room air 96%. HEENT: PERRLA, EOMI. Evaluation of oropharynx showed tongue protrudes midline; low position of soft palate. NECK: Supple. No JVD. Thyroid is not palpable. LUNGS: Clear to percussion and to auscultation. Good air exchange. No wheezing or rhonchi. HEART: S1, S2 regular. No murmurs, gallops or rubs. ABDOMEN: Slightly obese. Soft and nontender. Bowel sounds are present. No organomegaly appreciated. EXTREMITIES : No clubbing or cyanosis. SOMMELIER: Awake, alert, and oriented X3. Cranial nerves 2 to 7 intact. There is no fasciculation or atrophy. noted. No focal deficits observed. IMPRESSION: 1. Severe obstructive sleep apnea-hypopnea syndrome; apnea-hypopnea index 59.4 with oxygen desaturation to 72%, under full control with CPAP at 14 cm of water. Patient demonstrated good compliance with treatment, benefitting from treatment. 2. Significant leak by reading from CPAP unit. 3. Mild obesity. 4. Hypertension. 5. History of atrial fibrillation. 6. Low back problems. 7. History of deep venous thrombosis of right hip and pulmonary embolus to the right leg in the past. PLAN: 1. Patient will continue to use CPAP equipment every night for the whole night. 2. Will fit patient with [employer] full mask which goes onto the nose; subsequently cannot leak to the area of the eyes, and I hope there will be less leak with this mask. Prescription for this mask will be signed. 3. Losing weight. 4. Sleep hygiene with regular time in bed for at least 8 hours. 5. No driving if feeling any sleepiness. Thank you very much for allowing me to participate in the management of your patient. Sincerely, Jordan Santiago MD, PhD, FAASM Diplomat of [employer] [employer] [facility] MMODL / IJN: [id number] /
== END | disposition home or self-care (01) ==
LOC: SLEEP 16:33
PROVIDERS: ATTEND Internal Medicine
DX: G47.33 Obstructive sleep apnea (adult) (pediatric) (principal); E66.9 Obesity, unspecified; I10 Essential (primary) hypertension; I48.91 Unspecified atrial fibrillation; M48.9 Spondylopathy, unspecified; Z86.711 Personal history of pulmonary embolism; Z79.899 Other long term (current) drug therapy; Z99.89 Dependence on other enabling machines and devices

== ENCOUNTER → 2017-08-31 | Outpatient (CLI) | payer BC ==
[2017-08-31 14:54] LABS: HCT 48.1 % (39.0-53.0); HGB 16.5 gm/dL (13.0-17.5); MCH 30.5 pg (25.0-35.0); MCHC 34.3 g/dL (31.0-37.0); MCV 88.9 fL (80.0-100.0); Mean Platelet Volume 8.9; Platelet Count 169 k/uL (150-450); RBC 5.41 m/uL (4.30-5.90); RDW 13.2 % (11.5-15.5); WBC 7.4 k/uL (3.8-10.6)
[2017-08-31 15:25] LABS: Anion Gap 10 mmol/L; Blood Urea Nitrogen 16 mg/dL (9-20); Calcium 9.3 mg/dL (8.4-10.2); Carbon Dioxide 24 mmol/L (22-30); Chloride 107 mmol/L (98-107); Glucose 86 mg/dL (74-99); Potassium 4.6 mmol/L (3.5-5.1); Sodium 141 mmol/L (137-145)
== END | disposition home or self-care (01) ==
LOC: LABWHC1 14:14
PROVIDERS: ATTEND Internal Medicine Clinical Cardiac Electrophysiology
DX: I48.1 Persistent atrial fibrillation (principal)
CPT/HCPCS: 36415; 80048; 85027

== ENCOUNTER 2017-09-06 12:26 | Day surgery (SDC) | payer BC ==
[2017-09-06] MEDS ORDERED: SODIUM CHLORIDE 0.9% 1,000 ML IV ONE (14:00)
[2017-09-06] MEDS ORDERED: SUCCINYLCHOLINE CHLORIDE 100 MG/5 ML SYR IV ONE (15:03)
[2017-09-06] MEDS ORDERED: PROPOFOL 10 MG/ML 20 ML VIAL IV ONE (15:03)
[2017-09-06] MEDS ORDERED: MIDAZOLAM 2 MG/2 ML VIAL ONE (15:03)
[2017-09-06] MEDS ORDERED: ATROPINE SULFATE 0.1 MG/ML 10ML SYRINGE ONE (15:03)
[2017-09-06] MEDS ORDERED: ONDANSETRON 4 MG/2 ML VIAL ONE (15:03)
[2017-09-06] MEDS ORDERED: PROTAMINE SULFATE 10 MG/ML 5 ML VIAL IV ONE (15:03)
[2017-09-06] MEDS ORDERED: LIDOCAINE 1% INJ 10MG/ML (20 ML MDV) ONE (15:03)
[2017-09-06] MEDS ORDERED: HEPARIN SODIUM,PORCINE 10,000 UNIT/ML 1 ML VIAL ONE (15:03)
[2017-09-06] MEDS ORDERED: fentaNYL (PF) 50 MCG/ML 2 ML AMP ONE (15:03)
[2017-09-06] MEDS ORDERED: PHENYLEPHRINE-0.9% NACL SYG 1 MG/10 ML SYRINGE ONE (15:03)
[2017-09-06] MEDS ORDERED: LIDOCAINE 2% INJ 20 MG/ML SQ ONE (15:49)
[2017-09-06] MEDS ORDERED: HEPARIN SODIUM,PORCINE/D5W PMX 25,000 UNIT in DEXTROSE/WATER 1 500ML.BAG IV ONE (15:58)
[2017-09-06] MEDS: HEPARIN SODIUM 1,000 UN/ML (10ML VL) ONE ×2 (16:14→16:48)
[2017-09-06] MEDS ORDERED: IOPAMIDOL-370 100ML BTL INJ ONE (17:35)
[2017-09-06] MEDS ORDERED: ACETAMINOPHEN TAB 325 MG TAB PO PRN (17:56)
[2017-09-06] MEDS ORDERED: ACETAMINOPHEN IV (For NPO) 1,000 MG in EMPTY BAG 1 BAG IVPB ONE (17:56)
[2017-09-06] MEDS ORDERED: HYDROcodone/APAP 5-325MG 1 EACH TAB PO PRN (17:56)
--- NOTE | 2017-09-06 18:24 | P.PCN ---
Preoperative Diagnosis: Diagnosis Persistent atrial fibrillation, symptomatic, failed drug therapy Procedures performed (PVI - CRYO Ablation) Invasive hemodynamic monitoring while general anesthesia, right femoral arterial line for monitoring and sampling Comprehensive diagnostic EP study CS pacing and recording Drug infusion Catheter the mapping of the tachycardia (NOT 3D mapping) Intracardiac echocardiography Pulmonary vein isolation with transseptal and comprehensive EPS, 10901 Electrical cardioversion for atrial fibrillation Procedure details Patient was brought to the EP lab in a fasting state. Written informed consent was obtained prior to the procedure. Procedure performed under general anesthesia After initial muscle relaxant use, muscle relaxants were not given thereafter in order to assess phrenic nerve during procedure Patient prepped and draped as per protocol Full cryo-set up with standard preparation of the cryoablation tools done Femoral Venous access obtained on the right and left groins Sheaths placed Diagnostic catheters for the high right atrium, phrenic nerve stimulation and pacing, His bundle, RV and coronary sinus placed Intracardiac echo catheter placed Long sheath placed in the right atrium Left and right transseptal catheterization performed under intracardiac echo guidance Intravenous heparin with aCT above 300 Later, catheter positioning and balloon positioning under intracardiac echo Baseline measurements Patient was in atrial fibrillation was started study During this rhythm Sinus cycle length 1019 ms, CO 191 ms, QRS 88 ms, QT 429 AH 97, HV 54 Comprehensive diagnostic EP study with drug infusion Atrial pacing performed from the high right atrium and the coronary sinus Transseptal catheterization performed RA pressure 16/9/12 LA pressure 26/11/18 Transseptal catheterization performed with standard sheath. The cryoablation sheath was then placed with an over the wire exchange without any acute complications. All 4 pulmonary veins were isolated in the following sequence: Left superior followed by left inferior followed by right superior followed by right inferior The cryo-ablation balloon was placed at the os of each vein 1.5 mL of IV dye was injected to confirm an occluded vein Goal during cryoablation was to achieve -30C in the first 30 seconds. If not the balloon was repositioned to obtain this result After completion of Cryoblation with durations from 180-240 seconds, entrance block was confirmed with the Attain circular catheter in a roving fashion around the antrum of the pulmonary veins Phrenic nerve pacing was performed from the SVC, right innominate vein area and diaphragm voltage was monitored as well as manually Parameter goals for each cryo freeze -30C by 30 seconds -40C by 60 seconds Mediated between minus 40-55 Thaw time greater than 10 seconds Balloon visualized by intracardiac echo to ensure that the proximal one third was within the left atrium/antrum Left superior pulmonary vein 2 cryo ablations, 3 minutes followed by 2 minutes, complete isolation Left inferior pulmonary vein This pain was fibrillating 2 cryo lesions 4 minutes followed by 2 minutes During the first cryoablation, complete isolation in 68 seconds Right superior pulmonary vein, during phrenic nerve pacing 2 cryo lesions, 2 minutes followed by 3 minutes, complete isolation Right middle pulmonary vein, during phrenic nerve pacing Single lesion, 3 minutes, complete isolation Right inferior pulmonary vein, during phrenic nerve pacing 2 cryo ablations him at the first one for 2 minutes and the second one for 3 minutes with complete isolation Esophageal deflection for the second cryoablation lesion, on account of proximity of the esophagus to the balloon At the end of the procedure the Achieve catheter was once again used to check for entrance block Phrenic nerve stimulation was performed to confirm diaphragmatic stimulation the end of the procedure Cine fluoroscopy was performed at the very end of the procedure to confirm movement of both diaphragms with inspiration and expiration At the end of the procedure the patient was extubated Heparin was reversed Venous sheaths were removed and hemostasis assured Result Left inferior pulmonary vein was fibrillating Successful isolation with time to effect was 68 seconds for this pain Successful pulmonary vein isolation of 5 pulmonary veins, including a right middle vein using cryo-ablation Complete entrance block in all 5 veins confirmed No evidence for phrenic nerve injury Esophageal deflection for right inferior pulmonary vein Patient remained in atrial fibrillation following complete isolation of all veins, very active left atrial roof, fractionated electrograms, Electrical cardioversion to sinus rhythm/sinus bradycardia, requiring atropine Anesthesia: KATI
[2017-09-06] MEDS: FLECAINIDE 50 MG TAB PO SCH (21:12)
[2017-09-06] MEDS: LACTATED RINGERS 1,000 ML IV SCH (23:25)
[2017-09-06] MEDS: SODIUM CHLORIDE 0.9% 1,000 ML IV SCH (23:26)
[2017-09-07 00:27] VITALS: RESP 16
[2017-09-07 07:08] LABS: Anion Gap 6 mmol/L; Blood Urea Nitrogen 14 mg/dL (9-20); Calcium 8.6 mg/dL (8.4-10.2); Carbon Dioxide 28 mmol/L (22-30); Chloride 107 mmol/L (98-107); Glucose 82 mg/dL (74-99); Potassium 4.3 mmol/L (3.5-5.1); Sodium 141 mmol/L (137-145)
--- NOTE | 2017-09-07 07:57 | P.DS ---
Providers Attending physician: Yakov Pina Primary care physician: [facility] Course: Patient is doing well. He denies any chest discomfort or breathing trouble but he says her sore throat. He underwent isolation of 5 pulmonary veins including the right middle vein. The right inferior vein was fibrillating. Successful ablation was performed with complete isolation. Thereafter he underwent electrocardioversion He has underlying sick sinus syndrome with AV node disease with atrial pacing. Therefore I reduced the dose of metoprolol as well as reduce the dose of flecainide Heart sounds are normal breath sounds are clear groins of healed well there is no hematoma Plan Diagnosis Persistent, symptomatic atrial fibrillation, drug refractory Status post cryoablation of 5 pulmonary veins including right middle vein Right inferior pulmonary vein was in fibrillation Hypertension Sick sinus syndrome, prolonged sinus node recovery times, sinus bradycardia with sinus pauses pauses abnormal AV node function with atrial pacing Sinus node recovery times were prolonged AV node Wenckebach block 480 ms Plan Discharge home tomorrow if stable Follow Dr. Bazan Continue anticoagulation, Continue hypertension management Reduce flecainide 250 g twice daily Reduce metoprolol to 12.5 g by mouth daily in the morning Patient Condition at Discharge: Stable Plan - Discharge Summary Discharge Rx Participant: No New Discharge Prescriptions: New Flecainide [Tambocor] 50 mg PO Q12HR #60 tablet Metoprolol Tartrate [Lopressor] 12.5 mg PO DAILY #60 dose Discontinued Flecainide [Tambocor] 100 mg PO BID Metoprolol Tartrate [Lopressor] 25 mg PO BID No Action Rivaroxaban [Xarelto] 20 mg PO QAM Acetaminophen [Tylenol] 650 mg PO Q4H PRN PRN Reason: Mild To Moderate Pain Losartan [Cozaar] 50 mg PO QAM Discharge Medication List Rivaroxaban [Xarelto] 20 mg PO QAM 11/21/16 [History] Acetaminophen [Tylenol] 650 mg PO Q4H PRN 12/22/16 [History] Losartan [Cozaar] 50 mg PO QAM 02/07/17 [History] Flecainide [Tambocor] 50 mg PO Q12HR #60 tablet 09/06/17 [Rx] Metoprolol Tartrate [Lopressor] 12.5 mg PO DAILY #60 dose 09/06/17 [Rx] Follow up Appointment(s)/Referral(s): Chiqui Bazan MD [STAFF PHYSICIAN] - 1 Week Activity/Diet/Wound Care/Special Instructions: Post EP study - Ablation instructions 1. Keep access sites dry for 2 days. 2. No heavy lifting or straining for 2 days. 3. Avoid bending the hips repeatedly for 2 days. 4. You may go up and down stairs slowly Call if the following is noted 1. Bleeding, increasing swelling or pain at the access sites. 2. Increasing chest discomfort, especially upon taking a deep breath. 3. Increasing shortness of breath, at rest or with exertion. 4. Undue cough / phlegm 5. Difficulty or pain while swallowing. 6. Pain or change in color in the extremities. 7. Fever, chills, rigors. 8. Increasing headache or neurologic symptoms. 9. Dizziness, fainting, palpitations Changes in medications include Reduce flecainide to 50 mrem twice daily Reduce metoprolol to 12.5 mg once daily Continue Xarelto Continue Cozaar Follow-up with Dr. Bazan in 1-2 weeks Discharge Disposition: HOME SELF-CARE
[2017-09-07] MEDS ORDERED: RX INFO: IV CONTRAST WAS GIVEN 1 EACH MISC MISCELLANE PRN (07:58)
[2017-09-07] MEDS: FLECAINIDE 50 MG TAB PO SCH (08:31)
[2017-09-07] MEDS ORDERED: RIVAROXABAN 20 MG TAB PO SCH (09:00)
[2017-09-07] MEDS ORDERED: LOSARTAN 50 MG TAB PO SCH (09:00)
[2017-09-07] MEDS ORDERED: METOPROLOL TARTRATE 12.5 MG TAB PO SCH (09:00)
--- NOTE | 2017-09-07 10:38 | CT ---
EXAMINATION TYPE: CT chest w con DATE OF EXAM: 09/07/2017 COMPARISON: 10/05/2016 and 05/08/2017 HISTORY: Recent cardiac ablation CT DLP: 461.5 mGycm. Automated Exposure Control for Dose Reduction was Utilized. TECHNIQUE: CT scan of the thorax is performed following with IV Contrast, patient injected with 100 mL of Isovue 300. FINDINGS: LUNGS: There are mild paraseptal emphysematous changes. Left apical pulmonary nodule measures 4 mm an d is solid in nature on series 4 image 10, unchanged from the exam of 10/05/2016. Groundglass opacitie s are seen within the upper lobes such as on series 4 image 21. Dependent subsegmental atelectasis is noted. Pleural thickening is focal along the right lateral midlung measuring up to 9 mm in thickness on series 4 image 44, this is markedly improved from the exam of 10/05/2016. There is no pneumothorax seen. The tracheobronchial tree is patent. MEDIASTINUM: There are multiple mildly enlarged mediastinal lymph nodes measuring 1.2 cm in the right perihilar space, 1.3 cm in the right paratracheal space, 1.4 cm in the subcarinal space and 1.0 cm i n the prevascular space. No axillary adenopathy is seen moderate coronary artery calcifications are p resent. Heart is mildly enlarged. No pericardial effusion is seen. OTHER: There is no evidence of pneumoperitoneum or air outside of the esophageal wall. No esophageal focal wall thickening. No filling defect is seen within the left atrium near the pulmonary veins. No air within the cardiac chambers is identified. IMPRESSION: 1. No CT complication of atrial ablation is seen. No pneumoperitoneum or focal esophageal thickening. No air within the cardiac chambers. 2. Continued improvement of the right pleural thickening/prior loculated pleural effusion. 3. New multifocal groundglass opacities that could be infectious or inflammatory in etiology and ther efore follow-up CT thorax is recommended in 3-6 months to ensure resolution. 4. Multiple prominent mediastinal lymph nodes, possibly reactive. 5. Solid 4 mm apical pulmonary nodule on the left stable back to 10/05/2017.
[2017-09-07] MEDS: LACTATED RINGERS 1,000 ML IV SCH (13:57)
[2017-09-07] MEDS: SODIUM CHLORIDE 0.9% 1,000 ML IV SCH (13:57)
[2017-09-07 15:39] VITALS: BP 134/80; PULSE 66; TEMP 99.3
== END 2017-09-07 18:18 | disposition home or self-care (01) ==
LOC: CATHEP 12:26 → 3OBS 17:50 → CATHEP 09-07 18:18
PROVIDERS: ATTEND Internal Medicine Clinical Cardiac Electrophysiology
DX: I48.1 Persistent atrial fibrillation (principal); I49.5 Sick sinus syndrome; I10 Essential (primary) hypertension; R91.8 Other nonspecific abnormal finding of lung field; J90 Pleural effusion, not elsewhere classified; R59.0 Localized enlarged lymph nodes; R91.1 Solitary pulmonary nodule; Z86.711 Personal history of pulmonary embolism; Z86.718 Personal history of other venous thrombosis and embolism; Z79.01 Long term (current) use of anticoagulants; Z79.899 Other long term (current) drug therapy; Z87.891 Personal history of nicotine dependence
CPT/HCPCS: 85347; 93662; 93609; 93656; 80048; 71260; C1769 ×5; C1894 ×3; C1730 ×2; C1759; C1893; C1733; C1766; J2001; J1644 ×2; Q9967 ×2

== ENCOUNTER → 2018-05-23 | Outpatient (CLI) | payer BC, OTHER ==
[2018-05-23 11:31] LABS: Basophils # (A) 0.1 k/uL (0-0.2); Basophils % (A) 1 %; Eosinophils # (A) 0.3 k/uL (0-0.7); Eosinophils % (A) 3 %; HCT 54.2 % (39.0-53.0); HGB 17.8 gm/dL (13.0-17.5); Lymphocytes # (A) 2.7 k/uL (1.0-4.8); Lymphocytes % (A) 30 %; MCH 30.3 pg (25.0-35.0); MCHC 32.9 g/dL (31.0-37.0); MCV 91.9 fL (80.0-100.0); Mean Platelet Volume 8.8; Monocytes # (A) 0.6 k/uL (0-1.0); Monocytes % (A) 7 %; Neutrophils # (A) 5.1 k/uL (1.3-7.7); Neutrophils % (A) 57 %; Platelet Count 164 k/uL (150-450); RBC 5.89 m/uL (4.30-5.90); RDW 13.1 % (11.5-15.5); WBC 8.9 k/uL (3.8-10.6)
[2018-05-23 17:44] LABS: Albumin/Globulin Ratio 1.74 (1.60-3.17); Anion Gap 7.7 mmol/L (4.00-12.00); Calcium 9.5 mg/dL (8.7-10.3); Carbon Dioxide 26.3 mmol/L (21.6-31.8); Globulin 2.3 g/dL (1.6-3.3); Total Bilirubin 0.6 mg/dL (0.2-1.2); Total Protein 6.3 g/dL (6.2-8.2)
== END ==
LOC: LABWHC1 10:56
PROVIDERS: ATTEND Family Medicine
DX: I48.1 Persistent atrial fibrillation (principal); E87.5 Hyperkalemia; I10 Essential (primary) hypertension; Z80.1 Family history of malignant neoplasm of trachea, bronchus and lung
CPT/HCPCS: 36415; 80053; 84439; 84443; 85025

== ENCOUNTER → 2019-01-06 | Outpatient (CLI) | payer BC ==
[2019-01-06 11:44] LABS: Basophils % (A) 1 %; Eosinophils # (A) 0.2 k/uL (0-0.7); Eosinophils % (A) 2 %; HCT 52.3 % (39.0-53.0); HGB 16.7 gm/dL (13.0-17.5); Lymphocytes # (A) 2.4 k/uL (1.0-4.8); Lymphocytes % (A) 32 %; MCH 29.9 pg (25.0-35.0); MCV 93.5 fL (80.0-100.0); Mean Platelet Volume 8.6; Monocytes # (A) 0.4 k/uL (0-1.0); Monocytes % (A) 5 %; Neutrophils # (A) 4.3 k/uL (1.3-7.7); Neutrophils % (A) 58 %; Platelet Count 160 k/uL (150-450); RBC 5.59 m/uL (4.30-5.90); RDW 13.3 % (11.5-15.5); WBC 7.5 k/uL (3.8-10.6)
[2019-01-06 17:33] LABS: African American GFR (CKD) 106.5 (60.0-200.0); Albumin 3.9 g/dL (3.80-4.90); Albumin/Globulin Ratio 1.86 (1.60-3.17); Anion Gap 4.3 mmol/L (4.00-12.00); BUN/Creat Ratio 14.44 Ratio (12.00-20.00); Calcium 9.4 mg/dL (8.7-10.3); Carbon Dioxide 26.7 mmol/L (21.6-31.8); Chol/HDL Ratio 4.76; Globulin 2.1 g/dL (1.6-3.3); LDL Cholesterol,Calculated 142.2 mg/dL (0.0-131.0); Potassium 5.2 mmol/L (3.5-5.5); Total Bilirubin 0.8 mg/dL (0.3-1.2); VLDL Calculation 30.8 mg/dL (5.00-40.00)
[2019-01-06 17:48] LABS: T4, Free (Free Thyroxine) 0.8 ng/dL (0.80-1.80)
== END | disposition home or self-care (01) ==
LOC: LABWHC1 10:43
PROVIDERS: ATTEND Family Medicine
DX: Z00.00 Encounter for general adult medical examination without abnormal findings (principal); Z79.899 Other long term (current) drug therapy
CPT/HCPCS: 36415; 80053; 80061; 83880; 84439; 84443; 85025

== ENCOUNTER → 2019-05-27 | Outpatient (CLI) | payer BC, OTHER ==
[2019-05-27 17:26] LABS: Albumin 3.9 g/dL (3.80-4.90); Albumin/Globulin Ratio 1.86 (1.60-3.17); Bilirubin, Conjugated 0.2 mg/dL (0.20-0.40); Bilirubin,Unconjugated 0.5 mg/dL; Chol/HDL Ratio 3.59; Globulin 2.1 g/dL (1.6-3.3); LDL Cholesterol,Calculated 86.6 mg/dL (0.0-131.0); Total Bilirubin 0.7 mg/dL (0.2-1.2); VLDL Calculation 27.4 mg/dL (5.00-40.00)
== END | disposition home or self-care (01) ==
LOC: LABWHC1 09:33
PROVIDERS: ATTEND Family Medicine
DX: E78.00 Pure hypercholesterolemia, unspecified (principal); Z79.899 Other long term (current) drug therapy
CPT/HCPCS: 36415; 80061; 80076

== ENCOUNTER → 2020-03-31 | Outpatient (CLI) | payer BC ==
[2020-03-31 12:34] LABS: Basophils # (A) 0.1 k/uL (0-0.2); Basophils % (A) 1 %; Eosinophils # (A) 0.3 k/uL (0-0.7); Eosinophils % (A) 3 %; HCT 52.4 % (39.0-53.0); HGB 18.1 gm/dL (13.0-17.5); Lymphocytes # (A) 2.3 k/uL (1.0-4.8); Lymphocytes % (A) 25 %; MCHC 34.6 g/dL (31.0-37.0); MCV 92.6 fL (80.0-100.0); Mean Platelet Volume 9.6; Monocytes # (A) 0.6 k/uL (0-1.0); Monocytes % (A) 6 %; Neutrophils % (A) 64 %; Platelet Count 161 k/uL (150-450); RBC 5.65 m/uL (4.30-5.90); RDW 12.8 % (11.5-15.5); WBC 9.4 k/uL (3.8-10.6)
[2020-03-31 20:17] LABS: African American GFR (CKD) 105.7 (60.0-200.0); Albumin 4.2 g/dL (3.80-4.90); Albumin/Globulin Ratio 1.91 (1.60-3.17); Anion Gap 6.5 mmol/L (4.00-12.00); BUN/Creat Ratio 12.22 Ratio (12.00-20.00); Calcium 9.4 mg/dL (8.7-10.3); Carbon Dioxide 28.5 mmol/L (21.6-31.8); Chol/HDL Ratio 3.79; Globulin 2.2 g/dL (1.6-3.3); LDL Cholesterol,Calculated 90.6 mg/dL (0.0-131.0); Non-African American GFR(CKD) 91.2 (60.0-200.0); Potassium 5.1 mmol/L (3.5-5.5); Total Bilirubin 0.7 mg/dL (0.3-1.2); Total Protein 6.4 g/dL (6.2-8.2); VLDL Calculation 26.4 mg/dL (5.00-40.00)
[2020-03-31 20:25] LABS: Prostate Specific Antigen 1.6 ng/mL (0.0-4.5)
== END | disposition home or self-care (01) ==
LOC: LABWHC1 11:34
PROVIDERS: ATTEND Family Medicine
DX: Z00.00 Encounter for general adult medical examination without abnormal findings (principal)
CPT/HCPCS: 36415; 80053; 80061; 84153; 84443; 85025; 86803

== ENCOUNTER → 2021-04-06 | Outpatient (CLI) | payer BC ==
[2021-04-06 14:32] LABS: Basophils # (A) 0.1 k/uL (0-0.2); Basophils % (A) 1 %; Eosinophils # (A) 0.2 k/uL (0-0.7); Eosinophils % (A) 2 %; HCT 51.5 % (39.0-53.0); HGB 17.1 gm/dL (13.0-17.5); Lymphocytes # (A) 2.6 k/uL (1.0-4.8); Lymphocytes % (A) 34 %; MCH 31.5 pg (25.0-35.0); MCHC 33.2 g/dL (31.0-37.0); MCV 94.9 fL (80.0-100.0); Mean Platelet Volume 10.6; Monocytes # (A) 0.4 k/uL (0-1.0); Monocytes % (A) 5 %; Neutrophils # (A) 4.4 k/uL (1.3-7.7); Neutrophils % (A) 56 %; Platelet Count 155 k/uL (150-450); RBC 5.43 m/uL (4.30-5.90); RDW 13.5 % (11.5-15.5); WBC 7.8 k/uL (3.8-10.6)
[2021-04-06 20:39] LABS: ALT 39 U/L (10-49); AST 24 U/L (14-35); African American GFR (CKD) 107.4 (60.0-200.0); Albumin 3.9 g/dL (3.8-4.9); Albumin/Globulin Ratio 1.56 (1.60-3.17); Alkaline Phosphatase 114 U/L (41-126); BUN/Creat Ratio 13.04 Ratio (12.00-20.00); Blood Urea Nitrogen 11.1 mg/dL (9.0-27.0); Calcium 9.3 mg/dL (8.7-10.3); Carbon Dioxide 25.2 mmol/L (20.0-27.5); Chloride 103 mmol/L (96-109); Chol/HDL Ratio 3.48 Ratio; Globulin 2.5 g/dL (1.6-3.3); Glucose 90 mg/dL (70-110); LDL Cholesterol,Calculated 79.8 mg/dL (0.0-131.0); Non-African American GFR(CKD) 92.7 (60.0-200.0); Potassium 4.6 mmol/L (3.5-5.5); Sodium 139 mmol/L (135-145); Total Protein 6.4 g/dL (6.2-8.2)
== END | disposition home or self-care (01) ==
LOC: LABWHC1 13:07
PROVIDERS: ATTEND Family Medicine
DX: Z00.00 Encounter for general adult medical examination without abnormal findings (principal); Z12.5 Encounter for screening for malignant neoplasm of prostate; Z13.220 Encounter for screening for lipoid disorders; Z13.29 Encounter for screening for other suspected endocrine disorder
CPT/HCPCS: 36415; 80053; 80061; 84153; 84443; 85025; 86803

== ENCOUNTER → 2023-05-15 | Outpatient (CLI) | payer MEDICARE, OTHER ==
[2023-05-15 12:54] LABS: Basophils # (A) 0.06 X 10*3/uL (0.00-0.10); Basophils % (A) 0.8 %; Eosinophils # (A) 0.21 X 10*3/uL (0.04-0.35); Eosinophils % (A) 2.8 %; HCT 53.2 % (39.6-50.0); HGB 17.8 g/dL (13.0-17.0); Lymphocytes # (A) 2.51 X 10*3/uL (0.90-5.00); Lymphocytes % (A) 33.6 %; MCHC 33.5 g/dL (32.0-37.0); MCV 92.7 FL (80.0-97.0); Mean Platelet Volume 12.3 FL (9.5-12.2); Monocytes # (A) 0.58 X 10*3/uL (0.20-1.00); Monocytes % (A) 7.8 %; NRBC Per 100 WBC 0 X 10*3/uL (0.00-0.01); Neutrophils # (A) 4.09 X 10*3/uL (1.80-7.70); Neutrophils % (A) 54.6 %; Platelet Count 126 X 10*3/uL (140-440); RBC 5.74 X 10*6/uL (4.40-5.60); RDW 12.8 % (11.5-14.5); WBC 7.48 X 10*3/uL (4.50-10.00)
[2023-05-15 13:31] LABS: ALT 33 U/L (10-49); AST 21 U/L (14-35); Albumin 4.1 g/dL (3.8-4.9); Albumin/Globulin Ratio 1.64 Ratio (1.60-3.17); Alkaline Phosphatase 114 U/L (41-126); Blood Urea Nitrogen 13.2 mg/dL (9.0-27.0); Calcium 9.7 mg/dL (8.7-10.3); Carbon Dioxide 26.6 mmol/L (21.6-31.8); Chloride 107 mmol/L (96-109); Chol/HDL Ratio 2.99 Ratio; Globulin 2.5 g/dL (1.6-3.3); Glucose 108 mg/dL (70-110); LDL Cholesterol,Calculated 74.4 mg/dL (0.0-131.0); Potassium 4.3 mmol/L (3.5-5.5); Sodium 143 mmol/L (135-145); Total Bilirubin 0.8 mg/dL (0.3-1.2); Total Protein 6.6 g/dL (6.2-8.2); VLDL Calculation 17.46 mg/dL (5.00-40.00)
--- NOTE | 2023-05-15 15:19 | US ---
EXAMINATION TYPE: US Aorta Screening DATE OF EXAM: 05/15/2023 COMPARISON: None CLINICAL INDICATION: Male, 67 years old with history of Z13.6 ENCOUNTER FOR SCREENING FOR CARDIOVASCU LAR D; Screening for AAA, Current smoker, Hypertension, hyperlipidemia. TECHNIQUE: Multiple sonographic images of the abdominal aorta are obtained. FINDINGS: EXAM MEASUREMENTS: Abdominal Aorta: Proximal: Unable to clearly visualize or accurately measure. Mid: 2.3 x 2.3 cm. Distal: 1.7 x 1.6 cm. Bifurcation: Right Iliac: Obscured. Left Iliac: Obscured. ENGINE EMISSION TECHNICIAN NOTES: Exam is very limited due to gas and patient body habitus. IMPRESSION: 1. Unable to adequately visualize the proximal abdominal aorta or bilateral common iliac arteries. 2. The visualized mid and distal abdominal aorta show normal caliber.
== END | disposition home or self-care (01) ==
LOC: RADUSWWP 07:53
PROVIDERS: ATTEND Family Medicine
DX: Z13.6 Encounter for screening for cardiovascular disorders (principal); Z00.00 Encounter for general adult medical examination without abnormal findings; E78.2 Mixed hyperlipidemia; I10 Essential (primary) hypertension; I48.11 Longstanding persistent atrial fibrillation; F17.210 Nicotine dependence, cigarettes, uncomplicated
CPT/HCPCS: 80061; 80053; 84443; 85025; 76706; 36415; G0103

== ENCOUNTER → 2023-06-04 | Outpatient (CLI) | payer MEDICARE, OTHER ==
--- NOTE | 2023-06-04 11:23 | CTL ---
EXAMINATION TYPE: CT Low Dose Lung DATE OF EXAM ORDERED: 06/04/2023 HISTORY: . Lung cancer screening CT DLP: 135.[address] CTDI: 3.5 mGy Automated exposure control for dose reduction was used. SCREENING VISIT: Follow-up. COMPARISON: 06/01/2022. TECHNIQUE: Low dose computed tomography scan was performed through the chest at 1 mm thick sections a nd reconstructed images in multiple planes at 1 mm and [address] DIAGNOSTIC QUALITY: Satisfactory FINDINGS: LUNG NODULES: There is an area of pleural thickening which may relate to some rounded atelectasis in the right lower lobe which is unchanged. There are no new or enlarging nodules otherwise identified. LUNGS: COPD: Severity: Mild diffuse centrilobular and paraseptal emphysema. Fibrosis: Severity: None Lymph nodes: No adenopathy. Other findings: RIGHT PLEURAL SPACE: Effusion: None Calcification: None Thickening: None Pneumothorax: None LEFT PLEURAL SPACE: Effusion: None Calcification: None Thickening: None Pneumothorax: None HEART: Heart Size: Normal Coronary Calcification: There is significant vascular dilatation throughout the thoracic aorta withou t evidence of aneurysmal dilation. There are moderate to significant diffuse coronary artery calcific ations. Pericardial Effusion: None OTHER FINDINGS: Upper abdomen: There is a small sliding hiatal hernia. Gallstones are seen within the gallbladder. Th e visualized upper abdomen otherwise appears unremarkable. Bony thorax: None Supraclavicular region: None Other: None IMPRESSION: 1. Unchanged area of pleural thickening in the right lung base with no new or enlarging nodule seen. 2. Moderate to severe coronary calcium lesions. 3. Mild smoking-related change. CT LUNG RAD AND CT CHEST RECOMMENDATION: Lung-Rad 2 Benign Appearance or Behavior: Continue annual sc reening with LDCT in 12 months.
== END | disposition home or self-care (01) ==
LOC: RADCTMAIN 07:49
PROVIDERS: ATTEND Family Medicine
DX: Z12.2 Encounter for screening for malignant neoplasm of respiratory organs (principal); J92.9 Pleural plaque without asbestos; I25.9 Chronic ischemic heart disease, unspecified; F17.210 Nicotine dependence, cigarettes, uncomplicated
CPT/HCPCS: 71271

== ENCOUNTER → 2024-05-28 | Outpatient (CLI) | payer MEDICARE, OTHER ==
[2024-05-28 15:43] LABS: Basophils # (A) 0.06 X 10*3/uL (0.00-0.10); Basophils % (A) 0.8 %; Eosinophils # (A) 0.21 X 10*3/uL (0.04-0.35); Eosinophils % (A) 2.9 %; HCT 52.5 % (39.6-50.0); HGB 16.8 g/dL (13.0-17.0); Lymphocytes # (A) 2.39 X 10*3/uL (0.90-5.00); Lymphocytes % (A) 32.7 %; MCV 93.8 FL (80.0-97.0); Mean Platelet Volume 12.4 FL (9.5-12.2); Monocytes # (A) 0.63 X 10*3/uL (0.20-1.00); Monocytes % (A) 8.6 %; NRBC Per 100 WBC 0 X 10*3/uL (0.00-0.01); Neutrophils # (A) 3.97 X 10*3/uL (1.80-7.70); Neutrophils % (A) 54.3 %; Platelet Count 151 X 10*3/uL (140-440); RDW 12.9 % (11.5-14.5); WBC 7.31 X 10*3/uL (4.50-10.00)
[2024-05-28 16:06] LABS: ALT 36 U/L (10-49); AST 23 U/L (14-35); Albumin 3.8 g/dL (3.8-4.9); Albumin/Globulin Ratio 1.58 Ratio (1.60-3.17); Alkaline Phosphatase 115 U/L (41-126); BUN/Creat Ratio 16.11 Ratio (12.00-20.00); Blood Urea Nitrogen 14.5 mg/dL (9.0-27.0); Calcium 9.1 mg/dL (8.7-10.3); Chloride 107 mmol/L (96-109); Chol/HDL Ratio 3.12 Ratio; Globulin 2.4 g/dL (1.6-3.3); Glucose 115 mg/dL (70-110); LDL Cholesterol,Calculated 72.1 mg/dL (0.0-131.0); Potassium 4.4 mmol/L (3.5-5.5); Prostate Specific Antigen 2.17 ng/mL (0.000-4.500); Sodium 143 mmol/L (135-145); T4, Free (Free Thyroxine) 1.09 ng/dL (0.80-1.80); Total Bilirubin 0.5 mg/dL (0.3-1.2); Total Protein 6.2 g/dL (6.2-8.2)
== END | disposition home or self-care (01) ==
LOC: LABWHC1 09:06
DX: Z00.00 Encounter for general adult medical examination without abnormal findings (principal); E78.2 Mixed hyperlipidemia; Z79.899 Other long term (current) drug therapy
CPT/HCPCS: 36415; 80053; 80061; 84153; 84439; 84443; 85025

== ENCOUNTER → 2024-06-04 | Outpatient (CLI) | payer MEDICARE, OTHER ==
--- NOTE | 2024-06-04 11:13 | CTL ---
EXAMINATION TYPE: CT Low Dose Lung DATE OF EXAM: 06/04/2024 10:30 AM COMPARISON: 06/04/2023 CLINICAL INDICATION: Male, 68 years old with history of Z12.2 SCREEN F17.210 BAILEE DEP; CURRENT SMOKER 1 PPD X49 YEARS, history of tobacco use. TECHNIQUE: Multiple axial non-contrast scans were obtained from approximately the lung apices through the upper abdomen. Coronal and sagittal reformatted images were obtained. Low dose technique was uti lized. MIP were created on a separate workstation and submitted for review. CT DLP: 128.2 mGycm, Automated exposure control for dose reduction was used. CT Contrast: Contrast used: None Oral contrast used: None FINDINGS: Lack of intravenous contrast and low dose technique limits the evaluation of the vascular and soft ti ssue structures. LUNGS: No evidence of pulmonary fibrosis. No evidence of focal consolidation, pneumothorax or pleural effusion. Centrilobular and paraseptal emphysema changes. Nodules: RUL: None. RML: None. RLL: Similar subpleural nodular thickening measuring up to 14 x 7 mm MAYKEL: None. LLL: None. AIRWAY: Mild bronchial wall thickening noted. HEART: Size within normal limits. Moderate coronary artery calcifications present. MEDIASTINUM: No gross evidence of adenopathy. VASCULATURE: No aortic aneurysm. MUSCULOSKELETAL: No acute osseous abnormalities SOFT TISSUES/LYMPH NODES: Unremarkable. LOWER NECK: No significant findings. UPPER ABDOMEN: No significant findings. IMPRESSION: 1. No clinically significant pulmonary nodules. 2. Mild emphysema and COPD. 3. Moderate coronary artery atherosclerosis. CT LUNG RAD AND CT CHEST RECOMMENDATION: Lung-Rad 2 Benign Appearance or Behavior: Continue annual sc reening with LDCT in 12 months. S Modifier (other clinically significant findings): None Recommend smoking cessation (if current smoker), or continuation of smoking cessation (if prior smoke r). Annual screening for lung cancer with low-dose computed tomography is recommended in adults ages 55 to 77 years who have a 30 pack-year smoking history and currently smoke or have quit within the pa st 15 years. Screening should be discontinued once a person has not smoked for 15 years or develops a health problem that substantially limits life expectancy or the ability or willingness to have curat ashlyn lung surgery. Lung rads 2021 [email or web address] [email or web address], , 06/04/2024 11:11 AM
== END | disposition home or self-care (01) ==
LOC: RADCTMAIN 09:58
PROVIDERS: ATTEND Family Medicine
DX: Z12.2 Encounter for screening for malignant neoplasm of respiratory organs (principal); F17.210 Nicotine dependence, cigarettes, uncomplicated; I25.10 Atherosclerotic heart disease of native coronary artery without angina pectoris; J43.9 Emphysema, unspecified; J44.9 Chronic obstructive pulmonary disease, unspecified
CPT/HCPCS: 71271